=== PATIENT | female | born 1960 | race Caucasian/White ===

== ENCOUNTER 2020-06-12 12:34 | Emergency (ER) | payer OTHER, MEDICAID ==
[2020-06-12 12:43] VITALS: BP 132/70; PULSE 72; RESP 18; TEMP 97.5
[2020-06-12] MEDS ORDERED: ACETAMINOPHEN TAB 325 MG TAB PO STA (13:21)
[2020-06-12] MEDS ORDERED: IBUPROFEN 600 MG TAB PO STA (13:21)
--- NOTE | 2020-06-12 13:21 | ED ---
ENT HPI - General Chief complaint: ENT Stated complaint: Tooth pain Time Seen by Provider: 06/12/20 12:45 Source: patient Mode of arrival: ambulatory Limitations: no limitations - History of Present Illness Initial comments: Patient is a 59-year-old female presenting to the emergency Department with complaints of left upper side dental pain started yesterday. Patient states she has a few bad teeth on the left upper side that occasionally become inflamed and start causing pain. Patient states she usually has a prescription for penicillin that she can start taking but currently does not have anything to take. She states last night the pain started. She did not take any Tylenol or Motrin today. She denies any fevers or chills, no nausea or vomiting. She states she has seen her dentist in the past for this and they do want to pull those teeth but she cannot afford at this time. Patient has no further complaints at this time. Her vital signs are stable upon arrival. - Related Data Previous Rx's Medication Instructions Recorded Penicillin V Potassium [Pen Vee K] 500 mg PO QID 10 Days #40 tablet 06/12/20 Allergies Allergy/AdvReac Type Severity Reaction Status Date / Time No Known Allergies Allergy Verified 06/12/20 12:41 Review of Systems ROS Statement: Those systems with pertinent positive or pertinent negative responses have been documented in the HPI. ROS Other: All systems not noted in ROS Statement are negative. Past Medical History Past Medical History: No Reported History History of Any Multi-Drug Resistant Organisms: None Reported Past Surgical History: No Surgical Hx Reported Past Psychological History: No Psychological Hx Reported Smoking Status: Former smoker Past Alcohol Use History: None Reported Past Drug Use History: None Reported General Exam - General Exam Comments Initial Comments: GENERAL: Patient is well-developed and well-nourished. Patient is nontoxic and in no acute distress. HEAD: Atraumatic, normocephalic. EYES: Pupils equal round and reactive to light, extraocular movements intact, sclera anicteric, conjunctiva are normal. Eyelids were unremarkable. ENT: Nares patent, oropharynx clear without exudates. Moist mucous membranes. Patient has numerous decayed, dental caries noted throughout her mouth, there is a missing tooth and severely decayed teeth on the left upper side. No visible dental abscess seen. No facial swelling at this time. NECK: Normal range of motion, supple without lymphadenopathy or JVD. LUNGS: Unlabored respirations. Breath sounds clear to auscultation bilaterally and equal. No wheezes rales or rhonchi. HEART: Regular rate and rhythm without murmurs, rubs or gallops. ABDOMEN: Soft, nontender, normoactive bowel sounds. No guarding, no rebound. No masses appreciated. : Deferred MUSCULOSKELETAL: Normal extremities with adequate strength and normal range of motion, no pitting or edema. No clubbing or cyanosis. NEUROLOGICAL: Patient is alert and oriented x 3. Motor and sensory are also intact. Cranial nerves II through XII grossly intact. Symmetrical smile. Normal speech, normal gait. PSYCH: Normal mood, normal affect. SKIN: Warm, Dry, normal turgor, no rashes or lesions noted. Limitations: no limitations Course Vital Signs 06/12/20 12:41 Temperature 97.5 F L Pulse Rate 72 Respiratory 18 Rate Blood Pressure 132/70 O2 Sat by Pulse 97 Oximetry Medical Decision Making - Medical Decision Making Patient is a 59-year-old female here for left upper sided dental pain started yesterday. She's had this same thing in the past, she is requesting a prescription for antibiotics. She has seen her dentist in the past for this, they do want to pull her teeth however she cannot afford at this time. No facial swelling, no fevers. Patient be given a prescription for penicillin. I also gave her some Tylenol and Motrin today. She needs to follow up with her de ntist again. Patient is stable for discharge. Patient is in agreement with this plan of care. Return parameters were discussed with the patient and they verbalized understanding. Case discussed with Dr. Longoria. Disposition Clinical Impression: Toothache, Dental caries Disposition: HOME SELF-CARE Condition: Stable Instructions (If sedation given, give patient instructions): Toothache (ED) Additional Instructions: Please return to the Emergency Department if symptoms worsen or any other concerns. Recommend alternating between Tylenol and ibuprofen for pain relief. Take antibiotic as prescribed. Follow-up with your dentist. Prescriptions: Penicillin V Potassium [Pen Vee K] 500 mg PO QID 10 Days #40 tablet Is patient prescribed a controlled substance at d/c from ED?: No Referrals: Alistair Lau MD [Primary Care Provider] - 1-2 days Time of Disposition: 13:21
== END 2020-06-12 13:32 | disposition home or self-care (01) ==
LOC: EC 12:34
DX: K02.9 Dental caries, unspecified (principal); Z87.891 Personal history of nicotine dependence
CPT/HCPCS: 99282

== ENCOUNTER → 2020-11-26 | Outpatient (CLI) | payer OTHER ==
--- NOTE | 2020-11-27 17:00 | ECHOF ---
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 Morbid Obesity The left ventricular size is normal. There is mild concentric left ventricular hypertrophy. Overa ll left ventricular systolic function is low-normal with, an EF between 50 - 55 %. The right ventricle is normal in size. The left atrial size is normal. The right atrial size is normal. The aortic valve was not well visualized. Mild mitral regurgitation is present. Mild tricuspid regurgitation present. Right ventricular systolic pressure is normal at < 35 mmHg. The pulmonic valve was not well visualized. Echo free space represents a pericardial fat pad. CONCLUSIONS -------- 1. Morbid Obesity 2. The left ventricular size is normal. 3. There is mild concentric left ventricular hypertrophy. 4. Overall left ventricular systolic function is low-normal with, an EF between 50 - 55 %. 5. The right ventricle is normal in size. 6. The left atrial size is normal. 7. The right atrial size is normal. 8. The aortic valve was not well visualized. 9. Mild mitral regurgitation is present. 10. Mild tricuspid regurgitation present. 11. The pulmonic valve was not well visualized. 12. Echo free space represents a pericardial fat pad. [employer] EXECUTIVE: Tyra Chase RDCS
== END | disposition home or self-care (01) ==
LOC: RADECHMAIN 16:01
PROVIDERS: ATTEND Internal Medicine
DX: I08.1 Rheumatic disorders of both mitral and tricuspid valves (principal)
CPT/HCPCS: 93306

== ENCOUNTER 2021-11-17 17:37 | Emergency (ER) | payer OTHER ==
[2021-11-17] MEDS ORDERED: KETOROLAC 15 MG/ML 1 ML VIAL IM STA (18:18)
[2021-11-17] MEDS ORDERED: methylPREDNISolone SOD SUCCI 125 MG/2 ML VIAL IM ONE (18:18)
--- NOTE | 2021-11-17 19:18 | ED ---
General Adult HPI - General Chief complaint: Extremity Injury, Lower Stated complaint: Left foot pain Time Seen by Provider: 11/17/21 18:10 Source: patient Mode of arrival: ambulatory Limitations: no limitations - History of Present Illness Initial comments: Patient is a 61-year-old female presenting with chief complaint of left foot pain. Patient states that the pain is been ongoing for the last 3 days. It is primarily located around the MTP joint. She notes some swelling to the foot and warmth. Patient states that about a week ago her right foot displayed similar symptoms, the pain has decreased the swelling is still present. Swelling is limited to the feet, there is no swelling to the lower leg. No fever or chills. No recent injury or trauma. No numbness or tingling. No loss of range of motion. No nausea, vomiting, chest pain, difficulty breathing, abdominal pain. - Related Data Previous Rx's Medication Instructions Recorded Penicillin V Potassium [Pen Vee K] 500 mg PO QID 10 Days #40 tablet 06/12/20 Indomethacin [Indocin] 50 mg PO TID #21 capsule 11/17/21 Allergies Allergy/AdvReac Type Severity Reaction Status Date / Time No Known Allergies Allergy Verified 11/17/21 18:05 Review of Systems ROS Statement: Those systems with pertinent positive or pertinent negative responses have been documented in the HPI. ROS Other: All systems not noted in ROS Statement are negative. Past Medical History Past Medical History: No Reported History History of Any Multi-Drug Resistant Organisms: None Reported Past Surgical History: No Surgical Hx Reported Past Psychological History: No Psychological Hx Reported Smoking Status: Former smoker Past Alcohol Use History: None Reported Past Drug Use History: None Reported General Exam Limitations: no limitations General appearance: alert, in no apparent distress Head exam: Present: atraumatic, normocephalic, normal inspection Eye exam: Present: normal appearance, PERRL, EOMI. Absent: scleral icterus, conjunctival injection, periorbital swelling Neck exam: Present: normal inspection Left Ankle exam: Present: normal inspection, full ROM Foot/Toe exam: Present: full ROM, tenderness, swelling, erythema (Mild erythema near the MTP joint) Neurovascular tendon exam: Present: no vascular compromise. Absent: motor deficit, sensory deficit Neurological exam: Present: alert, oriented X3, CN II-XII intact Psychiatric exam: Present: normal affect, normal mood Skin exam: Present: warm, dry, intact, normal color. Absent: rash Course Vital Signs 11/17/21 11/17/21 18:02 21:02 Temperature 98.4 F 98.9 F Pulse Rate 84 72 Respiratory 20 17 Rate Blood Pressure 155/78 164/89 O2 Sat by Pulse 99 92 L Oximetry Medical Decision Making - Medical Decision Making Patient is a 61-year-old female presenting with chief complaint of left foot pain. She admits to tenderness, swelling, and mild redness near the big toe. On examination there is tenderness over the MTP joint, mildly erythematous. X- ray shows no acute process. Patient symptoms are consistent with gout, she responded well to Toradol and steroid shot here in the ER. Will be treated with indomethacin, no history of kidney disease. Educated on supportive treatment. Follow-up with PCP. Report back to ER with any new or worsening symptoms. Discussed return parameters and answered all questions. Patient conveyed verbal understanding and agreed to the plan. I discussed this case in detail with my attending Dr. Hopper. Disposition Clinical Impression: Gout Disposition: HOME SELF-CARE Condition: Good Instructions (If sedation given, give patient instructions): Low Purine Diet (ED), Gout (ED) Additional Instructions: Follow-up with PCP. Report back to ER with any new or worsening symptoms. Take medication as prescribed. Rest, ice, elevate the foot as needed. Prescriptions: Indomethacin [Indocin] 50 mg PO TID #21 capsule Is patient prescribed a controlled substance at d/c from ED?: No Referrals: Alistair Lau MD [Primary Care Provider] - 1-2 days Time of Disposition: 21:00
--- NOTE | 2021-11-17 20:53 | XR ---
PROCEDURE: XR foot complete bilateral - 6V DATE AND TIME: 11/17/2021 7:35 PM CLINICAL INDICATION: MTP pain, likely gout TECHNIQUE: Department protocol COMPARISON: None FINDINGS: RIGHT FOOT: There is no fracture or malalignment. There is normal bone mineralization. First MTP joint shows joint space narrowing and mild osteophytic spurring, consistent with osteoarthr osis. No bony erosions. The soft tissues are unremarkable. LEFT FOOT: There is no fracture or malalignment. There is no fracture or malalignment. There is normal bone mineralization. First MTP joint shows joint space narrowing and mild osteophytic spurring, consistent with osteoarthr osis. No bony erosions. The soft tissues are unremarkable. IMPRESSION: 1. Bilateral first MTP osteoarthrosis changes, left greater than right. 2. No bony erosions.
[2021-11-17 21:09] VITALS: BP 164/89; PULSE 72; RESP 17; TEMP 98.9
== END 2021-11-17 21:03 | disposition home or self-care (01) ==
LOC: EC 17:37
DX: M10.9 Gout, unspecified (principal); Z87.891 Personal history of nicotine dependence
CPT/HCPCS: 73630; 99283; 96372; J2930; J1885